=== PATIENT | female | born 1975 | race African-American/Black ===

== ENCOUNTER → 2023-10-02 | Day surgery (SDC) | payer OTHER ==
[~2023-10-02] MED LIST: GLYCOPYRROLATE INJ 0.2 MG/ML VIAL ONE; LIDOCAINE HCL 2% LOCAL INJ 5 ML SDV VIAL INJ ONE; MONTELUKAST SOD10 MG PO; PROPOFOL IV EMULSION 10 MG/ML 20 ML VIAL ONE; PROPOFOL IV EMULSION 10 MG/ML 50 ML VIAL IV ONE; VIT B12 INJ
[2023-10-02] MEDS: LACTATED RINGER'S 1,000 ML ONE (11:01)
[2023-10-02 13:40] VITALS: TEMP 97.5
[2023-10-02 14:10] VITALS: BP 127/88; PULSE 65; RESP 16; O2SAT 100
== END | disposition home or self-care (01) ==
LOC: OR 11:03 → EDBD 15:30
PROVIDERS: ATTEND Internal Medicine Gastroenterology
DX: Z12.11 Encounter for screening for malignant neoplasm of colon (principal); K59.09 Other constipation; K64.8 Other hemorrhoids; Z71.3 Dietary counseling and surveillance; J45.909 Unspecified asthma, uncomplicated; E66.01 Morbid (severe) obesity due to excess calories; E03.9 Hypothyroidism, unspecified; Z88.8 Allergy status to other drugs, medicaments and biological substances; Z68.34 Body mass index [BMI] 34.0-34.9, adult
CPT/HCPCS: 36415; 45378; 81025; 84443; J2001; J2704 ×2; J7121